=== PATIENT | female | born 1950 | race Caucasian/White ===

== ENCOUNTER 2020-05-07 10:42 | Day surgery (SDC) | payer MEDICARE, MEDICAID ==
[2020-05-07] VITALS (11 sets, daily range): BP systolic 123–144; BP diastolic 60–75
[~2020-05-07] VITALS: Ht 170.2 cm; Wt 79.3 kg
[~2020-05-07 10:42] MED LIST: LANTUS SQ; LEVO25TA2 PO; ceFAZolin 2gm in dextrose, iso 50 ML IV ONE; famotidine 20mg tablet PO ONE; ringers solution, lacted 1,000 ML IV SCH; tranexamic acid 1gm/0.7% sal. 100 ML IV ONE
[2020-05-07 11:49] LABS: BASOPHILS # (AUTO) 0.1 X10'3 (0-0.2); EOSINOPHILS # (AUTO) 0.1 X10'3 (0-0.9); EOSINOPHILS % (AUTO) 1.8 % (0-6); LYMPHOCYTES # (AUTO) 1.7 X10'3 (1.1-4.8); LYMPHOCYTES % (AUTO) 32.9 % (21-51); MEAN CORPUSCULAR HEMOGLOBIN 29.6 PG (27.0-31.0); MEAN CORPUSCULAR HGB CONC 33.6 g/dL (33.0-36.5); MEAN CORPUSCULAR VOLUME 88.2 FL (78-98); MEAN PLATELET VOLUME 7.5 FL (7.4-10.4); MONOCYTES # (AUTO) 0.5 X10'3 (0-0.9); MONOCYTES % (AUTO) 9.2 % (2-12); NEUTROPHILS # (AUTO) 2.8 X10'3 (1.8-7.7); NEUTROPHILS % (AUTO) 55.1 % (42-75); PRE OP HEMATOCRIT 39.9 % (35.0-45.0); PRE OP HEMOGLOBIN 13.4 g/dL (12.0-16.0); PRE OP PLATELET COUNT 284 X10'3 (140-440); RED BLOOD COUNT 4.52 X10'6 (4.20-5.60); RED CELL DISTRIBUTION WIDTH 13.2 % (11.5-14.5)
[2020-05-07 11:56] LABS: ALBUMIN 3.8 G/DL (3.4-5.0); ALKALINE PHOSPHATASE 97 IU/L (46-116); BLOOD UREA NITROGEN 19 MG/DL (7-18); BUN/CREATININE RATIO 24.7 (6.6-38.0); CALCIUM 9.4 MG/DL (8.5-10.1); CHLORIDE 104 MMOL/L (99-107); CREATININE 0.77 MG/DL (0.40-0.90); PRE OP ALT 36 U/L (30-65); PRE OP ANION GAP 9 (8-16); PRE OP AST 35 U/L (10-37); PRE OP BILIRUB, TOTAL 0.6 MG/DL (0.0-1.0); PRE OP GLUCOSE 95 MG/DL (70-104); PRE OP POTASSIUM 3.6 MMOL/L (3.4-5.1); PRE OP SODIUM 141 MMOL/L (135-145); TOTAL CARBON DIOXIDE 27.7 MMOL/L (24-32); TOTAL PROTEIN 7.6 G/DL (6.4-8.2); eGFR 75 ML/MIN
[2020-05-07] MEDS ORDERED: rocuronium 10mg/ml inj IV ONE (13:13)
[2020-05-07] MEDS ORDERED: sevoflurane 250ml liquid IH ONE (13:13)
[2020-05-07] MEDS ORDERED: propofol inj 20 ML IV ONE (13:17)
[2020-05-07] MEDS ORDERED: fentaNYL/PF 50MCG/1 ML 2ML syringe ONE ×2 (13:17→15:37)
[2020-05-07] MEDS ORDERED: midazolam 2 mg/2 ml injection ONE (13:17)
[2020-05-07] MEDS ORDERED: ROPIVAcaine 0.5% (5mg/ml) 30ml vial ONE (13:22)
[2020-05-07] MEDS ORDERED: meperidine/PF 25mg/ml syringe IV PRN ×3 (14:30)
[2020-05-07] MEDS ORDERED: ringers solution, lacted 1,000 ML IV SCH (14:30)
[2020-05-07] MEDS ORDERED: ondansetron/PF 4mg/2ml inj IV PRN (14:30)
[2020-05-07] MEDS ORDERED: proCHLORperazine 10 MG/2 ml inj IV PRN (14:30)
[2020-05-07] MEDS ORDERED: vancomycin 1,000mg inj ONE (14:48)
[2020-05-07] MEDS ORDERED: ondansetron/PF 4mg/2ml inj ONE (17:03)
[2020-05-07] MEDS ORDERED: dexamethasone sod phosphate 4mg/ml inj. ONE (17:03)
--- NOTE | 2020-05-07 17:10 | NUR ---
Received from OR via BED, accompanied by Anesthesiologist DR JORDAN--- and report given by Anesthesiolgist. PATIENT A&OX4, DENIES PAIN, V/S WNL, NEUROVASCULAR CHECKS INTACT, 20G PIV LUE, SCD ON, SPLINT CAST DRESSING CDI TO LLE
--- NOTE | 2020-05-07 19:11 | NUR ---
PATIENT A&OX4, DENIES PAIN, V/S WNL, NEUROVASCULAR CHECKS INTACT, 20G PIV LUE D/C, SCD OFF, SPLINT CAST DRESSING CDI TO LLE. I HAVE REVIEWED D/C INSTRUCTIONS WITH PATIENT AND FAMILY AND THEY HAVE VERBALIZED UNDERSTANDING. i HAVE GIVEN SCRIPTS FOR KEFLEX AND NORCO TO PATIENT AND SHE WAS D/C HOME WITH ALL BELONGINGS AND FAMILY GAVE TRANSPORT HOME.
== END 2020-05-07 19:10 | disposition home or self-care (01) ==
LOC: PRE-OP 10:42 → PAS 19:10
PROVIDERS: ATTEND Orthopaedic Surgery
DX: S86.022A Laceration of left Achilles tendon, initial encounter (principal); M66.372 Spontaneous rupture of flexor tendons, left ankle and foot; M25.572 Pain in left ankle and joints of left foot; W25.XXXA Contact with sharp glass, initial encounter; Y93.89 Activity, other specified; Y92.89 Other specified places as the place of occurrence of the external cause; E03.9 Hypothyroidism, unspecified; E11.8 Type 2 diabetes mellitus with unspecified complications
CPT/HCPCS: 27652; 27685; 36415; 80053; 82948; 85025; 87426; 93005; C1713; J1100; J2175; J2250; J2405; J2704; J3010; J3370; A4215; A4618; A6402; A6449; A7000; J2795; J7120